=== PATIENT | male | born 1965 | race Caucasian/White ===

== ENCOUNTER 2018-09-14 08:32 | Outpatient (CLI) | payer BC | END 2018-09-14 08:33 | disposition home or self-care (01) | LOC: PAT 08:32 ==

== ENCOUNTER 2018-09-17 06:02 | Day surgery (SDC) | payer BC ==
[2018-09-14 10:20] VITALS: BMI 28.4
[2018-09-17] MEDS ORDERED: Liquid Adhesive TOP ONE (07:27)
[2018-09-17] MEDS ORDERED: Lidocaine 1% Inj (20ml) ONE (07:27)
[2018-09-17] MEDS ORDERED: Bupivacaine 0.5% 50 ML IJ ONE (07:27)
[2018-09-17] MEDS ORDERED: Midazolam 2 MG/2 ML VIAL ONE (07:39)
[2018-09-17] MEDS ORDERED: Propofol 10 mg/ml Inj (20 ML) ONE (07:39)
[2018-09-17] MEDS ORDERED: Succinylcholine 200 mg/10 ml Inj IV ONE (07:40)
[2018-09-17] MEDS ORDERED: CeFAZolin 1 gm in NS 100ml IVPB ONE (07:50)
[2018-09-17] MEDS ORDERED: Rocuronium 10 mg/ml (5 ml) ONE (08:06)
[2018-09-17] MEDS ORDERED: ePHEDrine 50 mg/ml Inj ONE (08:24)
[2018-09-17] MEDS ORDERED: Desflurane Inhalation Anesthetic Liq (240 ml) ONE (08:29)
[2018-09-17] MEDS ORDERED: Neostigmine Methylsulfate 3mg/3ml Syringe IV ONE (08:32)
[2018-09-17] MEDS ORDERED: HYDROmorphone 0.5 mg/0.5 ml ISec IVP PRN (09:25)
[2018-09-17] MEDS ORDERED: Lactated Ringer's 1,000 ML IV SCH (09:30)
--- NOTE | 2018-09-17 09:33 | PCM.SURG1 ---
Surgeon's Initial Post Op Note - Surgeon's Notes Surgeon: Dr. Godwin Collector Of Internal Revenue: Dr. Resendez PGY3 Type of Anesthesia: General Endo Pre-Operative Diagnosis: right cervical lymphadenopathy; Hx lymphoma Operative Findings: right cervical lymph node [id number] Post-Operative Diagnosis: same Operation Performed: right cervical lymph node excisional biopsy; right internal juglar portacath placement Specimen/Specimens Removed: right cervical lymph node Estimated Blood Loss: EBL {In ML}: 5 Blood Products Given: N/A Drains Used: No Drains Post-Op Condition: Good Date of Surgery/Procedure: 09/17/18 Time of Surgery/Procedure: 09:34
[2018-09-17 10:37] VITALS: RESP 16; O2SAT 95
--- NOTE | 2018-09-17 10:56 | RAD ---
Date of service: 09/17/2018 HISTORY: s/p portacath placement COMPARISON: No prior. TECHNIQUE: 1 view obtained. FINDINGS: LUNGS: No active pulmonary disease. PLEURA: No significant pleural effusion identified, no pneumothorax apparent. CARDIOVASCULAR: No aortic atherosclerotic calcification present. Normal cardiac size. No pulmonary vascular congestion. OSSEOUS STRUCTURES: No significant abnormalities. VISUALIZED UPPER ABDOMEN: Normal. OTHER FINDINGS: Right-sided Port-A-Cath IMPRESSION: No active disease.
[2018-09-17 12:00] VITALS: BP 114/60; PULSE 86; TEMP 97.6
--- NOTE | 2018-09-17 13:23 | RAD ---
Date of service: 09/17/2018 PROCEDURE: Fluoroscopy up to 1 hr HISTORY: PORT A CATH COMPARISON: TECHNIQUE: 26.9 sec of fluoro time. Cumulative dose 4.54 mGy. A single image was submitted FINDINGS: The study shows a catheter in the right atrium. IMPRESSION: As above
--- NOTE | 2018-09-19 23:46 | OP ---
PROCEDURE DATE: 09/17/2018 PREOPERATIVE DIAGNOSIS: Right cervical lymphadenopathy with a history of lymphoma. POSTOPERATIVE DIAGNOSIS: Right cervical lymphadenopathy with a history of lymphoma. OPERATIONS PERFORMED: Right cervical lymph node excisional biopsy and a right internal jugular Port-A-Cath placement. SURGEON: Chaim Godwin MD RE RECORDING MIXER: Valentina Resendez DO, PGY-3 TYPE OF ANESTHESIA: General. SPECIMENS: Right cervical lymph node. ESTIMATED BLOOD LOSS: 5 mL. DESCRIPTION OF PROCEDURE: The patient was seen in Same Day Surgery where consent was obtained. The patient was taken to the operation room and placed on the operating table. The patient underwent general anesthesia and was then prepped and draped in the usual sterile fashion. A time-out was performed confirming correct patient placement, site, and procedure. Using a 15-blade, a 2-cm incision was made following the curve of the mandible roughly 2 finger widths below the jaw line directly over the palpable lymph node. Using electrocautery, the incision was then carried down through the subcutaneous fat to the layer of platysma . We attempted to bluntly separate the muscle fibers as opposed to transect them; however, we could not get sufficient visualization of the lymph node and had to excise the platysma in the direction of the muscle fibers. The incision was then carried down until the lymph node was encountered just superficial to the SCM. A clamp was used to bluntly dissect around the lymph node, and electrocautery was used to divide any adhesions to the lymph node. The lymph node was dissected free in its entirety with no injury to any of the surrounding neck structures. The lymph node was then passed off the table for pathology. Electrocautery was used to obtain hemostasis, and the wound was inspected to ensure complete lymph node removal. Once this was confirmed, the incision was closed in three layers starting with a muscle closure of the platysmas using Vicryl suture. A deep dermal closure was then performed using 3-0 Vicryl followed by a running subcutaneous closure using 4-0 Monocryl. Attention was then turned to the right internal jugular vein for Port-A-Cath placement. The patient was placed in slight Trendelenburg position, landmarks were identified, and a skin entry site was chosen at the apex of the triangle formed by the sternal and clavicular heads of the sternocleidomastoid muscle. The skin and subcutaneous tissues were anesthetized with 1% lidocaine and with ultrasound guidance, the vein was located using a 22-gauge finder needle and 10cc syringe. Having identified the vein, a 16-gauge finder needle with 10-mL syringe was used to cannulate the vein, again under ultrasound guidance. Once blood return was obtained, the syringe was removed from the finder needle and the guidewire was passed easily into the right internal jugular, to the SVC. Wire placement was confirmed using fluoroscopy, at which time a clamp was applied to the wire to ensure placement. A skin incision was then made lateral to the midclavicular line. A pocket for the port was made using electrocautery. An 11-blade was then used at the wire insertion site to widen the skin incision for the dilator and sheath. A tunneler was used to pass the catheter under the subcutaneous tissue from the site of the wire to the port skin pocket. The tunneler was removed, the cap of the Port-A-Cath was threaded over the the end of the catheter, and the distal catheter was clamped. The venous dilator was then placed over the wire and the track gently dilated. Care was taken to maintain possession of the wire during dilation. Fluoroscopy was again used to confirm placement of the dilator and sheath. The dilator was removed leaving behind the external sheath. The Port-A-Cath catheter was then fed through the external sheath to predetermined length of 20 cm. At this time, fluoroscopy was used to confirm placement of the catheter. The catheter was noted to be in the right ventricle. The catheter was pulled back until the catheter tip was located in the right atrium/ superior vena cava. At this point in time, the excess catheter length was cut, and the port was applied to the end of the catheter. The cap was applied to the port securing the catheter and the port together. The port was then placed within the previously made skin pocket, and a 2-0 Vicryl suture was used to stabilize the port. The skin incision was then closed in two layers w/ two 3-0 Vicryl deep dermal sutures and a running subcutaneous 4-0 Monocryl. A single interrupted 4-0 Monocryl was used to close the internal jugular insertion site. All three incisions were then dressed with Dermabond. The patient tolerated the procedure well, was extubated in the OR and taken to PACU in stable condition. A chest x-ray was performed in PACU confirming correct positioning of the Port-A-Cath as well confirming no pneumothorax postoperatively. Valentina DO Dipti Chaim Godwin MD TAO
== END 2018-09-17 11:30 | disposition home or self-care (01) ==
LOC: EDBD → SDS 06:02
PROVIDERS: ATTEND General Practice
DX: C83.31 Diffuse large B-cell lymphoma, lymph nodes of head, face, and neck (principal); Z45.2 Encounter for adjustment and management of vascular access device; I10 Essential (primary) hypertension; E11.9 Type 2 diabetes mellitus without complications; Z85.72 Personal history of non-Hodgkin lymphomas
CPT/HCPCS: 36561; 38500; 71045; 88305; C1751; J0131; J0330; J0690; J1170; J1644 ×2; J2001; J2250; J2405; J2704; J2710; J2765; J3010; J7120 ×2